=== PATIENT | female | born 1990 | race Caucasian/White ===

== ENCOUNTER 2020-08-14 09:51 | Inpatient (IN) | payer BC ==
[2020-08-14] MEDS ORDERED: Ibuprofen 800 MG TAB PO PRN (10:03)
[2020-08-14] MEDS ORDERED: Promethazine HCl 25 MG/ML VIAL IM PRN ×2 (10:03→11:58)
[2020-08-14] MEDS ORDERED: Acetaminophen 500 MG TAB PO PRN (10:03)
[2020-08-14] MEDS ORDERED: Diphenoxylate HCl/Atropine Tablet PO PRN ×2 (10:03)
[2020-08-14] MEDS ORDERED: HYDROcodone/Acetaminophen 5/325 mg Tablet PO PRN ×3 (10:03→18:43)
[2020-08-14] MEDS ORDERED: Butorphanol Tartrate 1 MG/ML VIAL SLOW IVP PRN (10:03)
[2020-08-14] MEDS ORDERED: hydrALAZINE 20 MG/ML VIAL SLOW IVP PRN ×2 (10:03→18:43)
[2020-08-14] MEDS ORDERED: NS / Oxytocin 40 units/1000ml 1,000 ML IV PRN (10:03)
[2020-08-14] MEDS ORDERED: Misoprostol 200 MCG TAB PR PRN (10:03)
[2020-08-14] MEDS ORDERED: Docusate 100 MG CAP PO PRN (10:03)
[2020-08-14] MEDS ORDERED: Lidocaine 1% (PF) 30 ML VIAL SC PRN (10:03)
[2020-08-14] MEDS ORDERED: Ondansetron PF 4 MG/2 ML Vial IVP PRN ×3 (10:03→18:43)
[2020-08-14] MEDS: Lactated Ringer's 1,000 ML IV SCH ×2 (10:35→13:00)
[2020-08-14] MEDS ORDERED: NS w/ Oxytocin 30 units 500 ML ONE ×2 (10:51→21:03)
[2020-08-14] MEDS ORDERED: Penicillin G Potassium 5 MILL.UNITS VIAL ONE (10:51)
[2020-08-14] MEDS ORDERED: Fentanyl 4 mcg/Bup 0.1% Cadd 100 ML ONE (11:19)
[2020-08-14 11:27] LABS: Hemoglobin 11.6 g/dL (12.0-15.5); Mean Corpuscular HGB CONC 34.5 g/dL (32.0-36.0); Mean Corpuscular Hemoglobin 31.2 pg (27.0-33.0); Mean Corpuscular Volume 90.3 fl (81.6-98.3); Mean Platelet Volume 10.2 fl (7.4-10.4); Platelet Count 274 10x3/uL (150-450); RBC Distribution Width 12.9 % (11.5-14.5); Red Blood Cell (RBC) Count 3.72 10x6/uL (3.90-5.03); White Blood Cell (WBC) Count 7.5 10x3/uL (3.5-10.5)
[2020-08-14 11:54] LABS: Hep B Surf Ag Non-Reactive S/CO (NonReactive); Syphilis Antibody Nonreactive (Nonreactive); Syphilis Antibody Index 0.04 S/CO (<1.00 Non-Reactive)
[2020-08-14] MEDS ORDERED: Acetaminophen 325 MG TAB PO PRN ×2 (11:58→18:44)
[2020-08-14] MEDS ORDERED: Lactated Ringer's 500 ML IV PRN (11:58)
[2020-08-14] MEDS ORDERED: ePHEDrine 50 MG/ML VIAL SLOW IVP PRN (11:58)
[2020-08-14] MEDS ORDERED: Eucerin (Mineral Oil/Petrolatum,White) 30 gm Jar TOP PRN (11:58)
[2020-08-14] MEDS ORDERED: Naloxone HCl 0.4 mg/ml Vial IVP PRN ×2 (11:58)
[2020-08-14] MEDS ORDERED: diphenhydrAMINE 50 MG/ML VIAL IVP PRN (11:58)
[2020-08-14 11:59] LABS: HBSAg Index 0.13 S/CO (0-0.99)
[2020-08-14] MEDS ORDERED: Fentanyl 4 mcg/Bupivacaine 0.1% Cassette 100 ML EPIDURAL SCH (12:00)
[2020-08-14] MEDS ORDERED: Communication Order-Pharmacy FS SCH (12:00)
[2020-08-14 12:35] VITALS: BMI 26.9
[2020-08-14] MEDS ORDERED: Penicillin G Potassium 5 MILL.UNITS in Sodium Chloride 0.9% 100 ML IVPB SCH (12:45)
[2020-08-14] MEDS: Penicillin G 2.5 MILL.units 2.5 MILL.UNITS in Premix Bag 1 BAG IVPB SCH ×2 (15:04→22:08)
[2020-08-14] MEDS ORDERED: diphenhydrAMINE 25 MG CAP PO PRN (18:43)
[2020-08-14] MEDS ORDERED: Benzocaine-Menthol 82.5 ML CAN TOP PRN (18:43)
[2020-08-14] MEDS ORDERED: Misoprostol 200 MCG TAB VAG PRN (18:43)
[2020-08-14] MEDS ORDERED: Milk Of Magnesia 30 ML UDCUP PO PRN (18:43)
[2020-08-14] MEDS ORDERED: Lanolin Ointment 7 GM TUBE TOP PRN (18:43)
[2020-08-14] MEDS ORDERED: Preparation H Ointment 28 GM TUBE PR PRN (18:43)
[2020-08-14] MEDS ORDERED: Zolpidem Tartrate 5 MG TAB PO PRN (18:43)
[2020-08-14] MEDS ORDERED: Bisacodyl 10 MG SUPP PR PRN (18:43)
[2020-08-14] MEDS ORDERED: Adacel (T-DAP) 0.5 ML SYRINGE IM ONE (18:43)
[2020-08-14] MEDS ORDERED: NS / Oxytocin 40 units/1000ml 1,000 ML IV SCH (18:45)
[2020-08-14] MEDS: Ibuprofen 800 MG TAB PO SCH (22:14)
[2020-08-14] MEDS: Docusate Calcium (SURFAK) 240 MG CAP PO SCH (22:14)
[2020-08-15] MEDS: Ibuprofen 800 MG TAB PO SCH ×3 (06:23→21:00)
[2020-08-15] MEDS ORDERED: Witch Hazel-Glycerin 1 EACH JAR TOP PRN ×2 (07:05→17:37)
[2020-08-15] MEDS: Ferrous Sulfate 325 MG TAB PO SCH ×2 (07:35→16:26)
[2020-08-15] MEDS: Prenatal Vitamin 1 TAB PO SCH (08:41)
[2020-08-15] MEDS: Docusate Calcium (SURFAK) 240 MG CAP PO SCH ×2 (08:41→21:00)
[2020-08-15] MEDS: HYDROcodone/Acetaminophen 5/325 mg Tablet PO PRN ×2 (10:55→16:27)
[2020-08-16] MEDS ORDERED: Simethicone Chewable 80 MG TAB PO PRN (02:30)
[2020-08-16] MEDS ORDERED: Simethicone Chewable 80 MG TAB ONE (02:41)
[2020-08-16] MEDS: Ibuprofen 800 MG TAB PO SCH (06:00)
[2020-08-16 07:40] VITALS: BP 116/69; TEMP 97.9
[2020-08-16] MEDS: Ferrous Sulfate 325 MG TAB PO SCH (08:39)
[2020-08-16] MEDS: Docusate Calcium (SURFAK) 240 MG CAP PO SCH (09:04)
[2020-08-16] MEDS: Prenatal Vitamin 1 TAB PO SCH (09:04)
[2020-08-16 09:49] LABS: SARS-CoV-2 PCR NAA for Saliva Not Detected (NotDetected)
== END 2020-08-16 11:50 | disposition home or self-care (01) | DRG 807 ==
LOC: CSHLD 09:51 → CSHPP 21:27
PROVIDERS: ADMIT Obstetrics & Gynecology; ATTEND Obstetrics & Gynecology
PROC: 10E0XZZ Delivery of Products of Conception, External Approach (ICD-10-PCS; principal; 2020-08-14)
DX: O99.824 Streptococcus B carrier state complicating childbirth (principal); Z37.0 Single live birth; Z3A.37 37 weeks gestation of pregnancy; Z20.822 Contact with and (suspected) exposure to COVID-19; O99.354 Diseases of the nervous system complicating childbirth; O99.344 Other mental disorders complicating childbirth; G43.909 Migraine, unspecified, not intractable, without status migrainosus; F41.9 Anxiety disorder, unspecified; F32.9 Major depressive disorder, single episode, unspecified; Z79.899 Other long term (current) drug therapy
CPT/HCPCS: 51702; 85027; 86780; 86850; 86900; 86901; 87340; 87635; J2540; J2590; J3490; U0003; U0005